=== PATIENT | male | born 1950 | race Caucasian/White ===

== ENCOUNTER 2022-12-31 08:19 | Outpatient (CLI) | payer MEDICARE, OTHER | END 2022-12-31 08:20 | disposition home or self-care (01) | LOC: BICMAMMO 08:19 | PROVIDERS: ATTEND Family Medicine | DX: N63.0 Unspecified lump in unspecified breast (principal); Z91.89 Other specified personal risk factors, not elsewhere classified | CPT/HCPCS: 76642; 77066; G0279 ==